=== PATIENT | male | born 1980 | race Hispanic/Latino ===

== ENCOUNTER 2017-10-15 14:32 | Emergency (ER) | payer MEDICARE | END 2017-10-15 15:04 | disposition home or self-care (01) | LOC: EDH 14:32 | DX: F29 Unspecified psychosis not due to a substance or known physiological condition (principal); F20.9 Schizophrenia, unspecified ==

== ENCOUNTER 2018-06-26 15:16 | Emergency (ER) | payer MEDICARE | END 2018-06-26 15:48 | disposition home or self-care (01) | LOC: EDH 15:16 | DX: Z02.89 Encounter for other administrative examinations (principal); F25.9 Schizoaffective disorder, unspecified; Z87.891 Personal history of nicotine dependence ==